=== PATIENT | female | born 1960 | race Caucasian/White ===

== ENCOUNTER → 2018-10-28 09:36 | Outpatient (CLI) | payer OTHER, SELFPAY ==
[2018-10-10 17:06] VITALS: BMI 45.3
--- NOTE | 2018-10-28 09:42 | NM_ITS ---
CLINICAL: 58-year-old female with reported history of abdominal pain. RADIONUCLIDE HEPATOBILIARY SCINTIGRAPHY COMPARISON: None available FINDINGS: Following the intravenous administration of 5.3 mCi of 99m Tc Mebrofenin, hepatobiliary images reveal: 1. Relatively prompt and homogeneous radiopharmaceutical concentration is noted by a normal sized liver. No parenchymal defects are identified. 2. Gallbladder activity is not identified during 120 minutes of sequential imaging. 3. Small intestinal tract is observed at 45 minutes post radiopharmaceutical administration. 4. Washout of the radiopharmaceutical by the hepatic parenchyma appears qualitatively normal. 5. Duodenal-gastric reflux is visualized at 45 minutes following tracer injection. NM/Hepatobilliary Img w/Pharm Int IMPRESSION: 1. ABNORMAL 99m Tc Mebrofenin hepatobiliary imaging examination. A. Nonvisualization of the gallbladder at 120 minutes post radiopharmaceutical administration in the nonacute setting is consistent with a high probability of chronic cholecystitis in patients with intermediate to high pretest probabilities of hepatobiliary disease and who have fasted for more than 4 and less than 24 hours. (Fariba et al, Nucl Med Chrissy Denisa Press pg. 35, 1981). B. There is scintigraphic evidence of duodenal-gastric reflux as defined above. Electronically Signed: Shabbir Baer DO at 10:04 EDT Tel , Service support ,
--- NOTE | 2018-10-28 12:51 | VDLE_ITS ---
Reason For Study: pain, edema RIGHT LEFT GSV is normal. GSV is normal. CFV is compressible, spontaneous, phasic, CFV is compressible, spontaneous, phasic, competent and demonstrates normal competent, and demonstrates normal augmentation. augmentation. FV is compressible, spontaneous, phasic, FV is compressible, spontaneous, phasic, competent and demonstrates normal competent and demonstrates normal augmentation. augmentation. POP V is compressible, spontaneous, phasic, POP V is compressible, spontaneous, phasic, competent and demonstrates normal competent and demonstrates normal augmentation. augmentation. T/P Trunk is compressible. T/P Trunk is compressible. PTV is compressible. PTV is compressible. RT PerV is compressible. LT PerV is compressible. S-F Junction is competent. S-F Junction is competent. GSV is competent. GSV is competent. SSV is competent. SSV is competent. ASV in the mid calf is incompetent for greater than .5 seconds. ASV measures .34 x .35 cm. Procedure Exam performed in department. Patient was scanned in reverse Trendelenburg position during reflux assessment. The exam was diagnostic. Interpretation Summary Deep veins of the lower extremities are bilaterally patent and compressible segmentally. There is no evidence of deep vein thrombosis on either side. Valvular competence appears intact within the proximal deep venous systems bilaterally. The greater saphenous veins appear bilaterally patent and compressible segmentally. Sapheno-femoral junctions are bilaterally competent . Valvular competence appears to be intact segmentally within the greater saphenous veins bilaterally. Small saphenous veins are patent and competent bilaterally. An accessory saphenous vein in the right mid-calf is incompetent. Ordering Physician: Irma Felix Performed By: Josias Lopez RVJosefina
--- NOTE | 2018-10-28 12:51 | ART_ITS ---
Reason For Study: claudication, pain, edema Left Segmental Pressures Left brachial= 139mmHg. Left posterior tibial artery = 154mmHg. Left dorsalis pedis artery = 154mmHg. Left digit = 136 mmHg. The left dorsalis pedis waveforms are triphasic. The left posterior tibial artery waveforms are triphasic. Right Segmental Pressures Right brachial= 143mmHg. Right posterior tibial artery = 153mmHg. Right dorsalis pedis artery = 143mmHg. Right digit = 140 mmHg. The right dorsalis pedis waveforms are triphasic. The right posterior tibial artery waveforms are triphasic. Indices The right ankle brachial index by the posterior tibial artery is 1.08. The right digital-brachial index is .98. The left ankle brachial index by the posterior tibial artery is 1.08. The left digital-brachial index is .95. Interpretation Summary Triphasic Doppler waveforms are noted at ankle level bilaterally. Pulse-volume waveform amplitudes appear satisfactory at all levels bilaterally, including low-thigh, calf, ankle, and digital levels. Resting ankle-brachial indices are normal bilaterally. Digital-brachial indices are bilaterally normal. There is no evidence of significant arterial occlusive disease in the lower extremities bilaterally. Ordering Physician: Irma Felix Performed By: TRUNG HIGUERA T
== END ==
PROVIDERS: Family Provider Nurse Practitioner; PCP Nurse Practitioner; Referring Provider Nurse Practitioner
DX: R11.0 Nausea (principal); R10.13 Epigastric pain; R60.9 Edema, unspecified; M79.605 Pain in left leg; M79.672 Pain in left foot; I73.9 Peripheral vascular disease, unspecified
CPT/HCPCS: 78227; 93923; 93970; A9537

== ENCOUNTER → 2018-12-19 16:20 | Outpatient (CLI) | payer OTHER, SELFPAY ==
[2018-12-19 15:32] VITALS: BMI 44.9
[2018-12-20 00:29] LABS: Absolute Lymphocyte Count 2.32 X10^3/ul (0.83-4.51); Absolute Neutrophil Count 6.6 X10^3/uL (2.0-7.7); Basophil# 0.04 X10^3/uL; Basophil% 0.4 % (0-1); Eosinophil# 0.15 X10^3/uL; Eosinophils% 1.5 % (0-5); Hematocrit 48.9 % (37-47); Lymphocyte # 2.32 X10^3/ul (4.0); Lymphocyte % 23.9 % (19-41); Mean Corp Hgb Conc 32.7 g/gl (32-36); Mean Corpuscular Hgb 32.1 pg (27.0-32.0); Mean Corpuscular Volume 98.2 fL (81-99); Mean Platelet Vol. 13.2 fl (6.2-12.0); Monocyte# 0.58 X10^3/uL; Neutrophil # 6.59 X10^3/uL (2.7-7.7); Neutrophil % 67.9 % (47-70); Platelet Count 117 K/mm3 (150-450); RBC Distribution Width CV 13.6 % (11.6-14.6); RBC Distribution Width SD 48.2 fl (35.1-43.9); Red Blood Count 4.98 M/mm3 (4.2-5.4); White Blood Count 9.7 K/mm3 (4.4-11.0)
[2018-12-20 00:34] LABS: POSITIVE COUNT NO; POSITIVE DIFFERENTIAL NO; POSITIVE MORPHOLOGY NO
[2018-12-20 00:45] LABS: ALB/GLOB Ratio 0.8 RATIO (0.9-2.4); AST(SGOT) 31 U/L (15-37); Alanine Aminotransfer ALT/SGPT 36 U/L (13-56); Albumin, Serum 3.2 g/dL (3.2-5.0); Alkaline Phosphatase 288 U/L (45-117); Anion Gap 5 (5-15); BUN 8 mg/dL (7-18); BUN/Creat Ratio 7.8 RATIO (10-20); Calcium,Total 8.6 mg/dL (8.5-10.1); Chloride 99 mmol/L (98-107); Cholesterol 126 mg/dL (200); Creatinine, Serum 1.03 mg/dL (0.55-1.02); EST Glomerular Filtration Rate 59 mL/min (>60); Est Glom Filt Rate - Afr Amer 71 mL/min (>60); Globulin 4.1 g/dL (2.2-4.2); Glucose 290 mg/dL (74-106); High Density Lipoprotein 20 mg/dL; Potassium 3.8 mmol/L (3.5-5.1); Protein, Total 7.3 g/dL (6.4-8.2); Sodium Level 136 mmol/L (136-145); Triglycerides 186 mg/dL; Very Low Density Lipoprotein 37 mg/dL (5-40)
== END ==
PROVIDERS: Family Provider Nurse Practitioner; PCP Nurse Practitioner; Visit Provider Nurse Practitioner
DX: R73.9 Hyperglycemia, unspecified (principal)
CPT/HCPCS: 80053; 80061; 85025

== ENCOUNTER → 2018-12-20 09:59 | Outpatient (CLI) | payer OTHER, SELFPAY ==
[2018-12-19 15:32] VITALS: BMI 44.9
== END ==
PROVIDERS: Family Provider Nurse Practitioner; PCP Nurse Practitioner; Referring Provider Nurse Practitioner; Visit Provider Nurse Practitioner
DX: R73.9 Hyperglycemia, unspecified (principal)

== ENCOUNTER → 2019-06-01 23:37 | Outpatient (CLI) | payer OTHER, SELFPAY ==
[2019-06-01 16:12] VITALS: BMI 41.5
[2019-06-02 10:55] LABS: Thyroid Stim Hormone (TSH) 1.74 uIU/mL (0.358-3.74)
== END ==
PROVIDERS: Family Provider Nurse Practitioner; PCP Nurse Practitioner; Referring Provider Nurse Practitioner; Visit Provider Nurse Practitioner
DX: E03.9 Hypothyroidism, unspecified (principal)
CPT/HCPCS: 84443

== ENCOUNTER → 2019-08-10 22:03 | Outpatient (CLI) | payer OTHER, SELFPAY ==
[2019-08-10 17:32] VITALS: BMI 41.1
[2019-08-10 22:14] LABS: Absolute Lymphocyte Count 3.43 X10^3/uL (0.83-4.51); Absolute Neutrophil Count 5.5 X10^3/uL (2.0-7.7); Basophil# 0.07 X10^3/uL; Basophil% 0.7 % (0-1); Eosinophil# 0.21 X10^3/uL; Eosinophils% 2.2 % (0-5); Hematocrit 53.8 % (37-47); Hemoglobin 17.6 g/dL (12.0-15.0); Lymphocyte # 3.43 X10^3/ul (4.0); Lymphocyte % 35.2 % (19-41); Mean Corp Hgb Conc 32.7 g/dL (32-36); Mean Corpuscular Hgb 31.8 pg (27.0-32.0); Mean Corpuscular Volume 97.3 fL (81-99); Mean Platelet Vol. 12.5 fl (6.2-12.0); Monocyte# 0.52 X10^3/uL; Monocyte% 5.3 % (0-10); NRBC Flagged by Analyzer 0 % (0-5); Neutrophil # 5.48 X10^3/uL (2.7-7.7); Neutrophil % 56.2 % (47-70); Platelet Count 117 K/mm3 (150-450); RBC Distribution Width CV 13.4 % (11.6-14.6); Red Blood Count 5.53 M/mm3 (4.2-5.4); White Blood Count 9.8 K/mm3 (4.4-11.0)
[2019-08-10 22:32] LABS: ALB/GLOB Ratio 1.1 RATIO (0.9-2.4); AST(SGOT) 32 U/L (15-37); Alanine Aminotransfer ALT/SGPT 59 U/L (13-56); Albumin, Serum 4.1 g/dL (3.2-5.0); Alkaline Phosphatase 155 U/L (45-117); Anion Gap 5 (5-15); BUN 16 mg/dL (7-18); BUN/Creat Ratio 13.8 RATIO (10-20); CRP, High Sensitivity Cardiac 5.32 mg/L; Calcium,Total 9.3 mg/dL (8.5-10.1); Chloride 104 mmol/L (98-107); Creatinine, Serum 1.16 mg/dL (0.55-1.02); EST Glomerular Filtration Rate 51 mL/min (>60); Est Glom Filt Rate - Afr Amer 62 mL/min (>60); Globulin 3.8 g/dL (2.2-4.2); Glucose 114 mg/dL (74-106); Potassium 3.9 mmol/L (3.5-5.1); Protein, Total 7.9 g/dL (6.4-8.2); Sodium Level 140 mmol/L (136-145); Thyroid Stim Hormone (TSH) 2.45 uIU/mL (0.358-3.74)
== END ==
PROVIDERS: Family Provider Nurse Practitioner; PCP Nurse Practitioner; Referring Provider Nurse Practitioner; Visit Provider Nurse Practitioner
DX: E11.8 Type 2 diabetes mellitus with unspecified complications (principal); E11.65 Type 2 diabetes mellitus with hyperglycemia; R06.02 Shortness of breath
CPT/HCPCS: 80053; 84443; 84484; 85025; 86141

== ENCOUNTER → 2019-10-01 06:50 | Outpatient (CLI) | payer OTHER, SELFPAY ==
[2019-08-18 14:50] VITALS: BMI 41.5
--- NOTE | 2019-10-01 06:51 | ECHOCS_ITS ---
Version 2 Reason For Study: Palpitations Procedure This was a 2D Doppler, Color Flow transthoracic echocardiogram. Exam performed in department. Left Ventricle Normal LV size. The estimated ejection fraction is 65 %. Normal diastology for age. No regional wall motion abnormalities noted. Right Ventricle Normal RV size. Normal systolic function. Atria Normal left atrium. Normal right atrium. No doppler evidence for ASD. Mitral Valve There is no mitral valve stenosis. No mitral valve insufficiency. Tricuspid Valve There is no tricuspid stenosis. Unable to estimate RV systolic pressure due to insufficient tricuspid regurgitant envelope. Trivial tricuspid valve insufficiency. Aortic Valve Trisinus/trileaflet aortic valve. There is no aortic stenosis. No aortic valve insufficiency. Pulmonic Valve There is no pulmonic valvular stenosis. Trivial pulmonic valve insufficiency. Great Vessels Normal aortic root. Pericardium/Pleural No pericardial effusion. Medication Diluted definity 3.0ml given slow IV push to enhance endocardial definition. MMode/2D Measurements & Calculations RVDd: 3.3 cm Ao root diam: 3.0 cm LAV(MOD-bp): 53.3 ml LAV(MOD-bp) Indexed: 25.1 ml/m2 LAV(MOD-sp2): 55.2 ml LAV(MOD-sp4): 51.2 ml SV(MOD-sp4): 74.2 ml SV(sp4-el): 79.2 ml LVAd ap4: 30.2 cm2 EDV(MOD-sp4): 92.6 ml EDV(sp4-el): 97.1 ml LVAs ap4: 11.2 cm2 ESV(MOD-sp4): 18.3 ml ESV(sp4-el): 17.8 ml EF(MOD-sp4): 80.2 % EF(sp4-el): 81.6 % LA dimension(2D): 4.6 cm LA A4 area: 18.6 cm2 RA A4 area: 13.0 cm2 Time Measurements MV dec time: 0.26 sec Doppler Measurements & Calculations MV E max ming: 79.0 cm/sec Lat Peak E' Ming: 8.0 cm/sec Med Peak E' Ming: 7.5 cm/sec MV A max ming: 87.3 cm/sec E/E' lat: 9.9 E/E' med: 10.5 MV E/A: 0.90 Ao V2 max: 170.9 cm/sec LV V1 max: 161.3 cm/sec PA V2 max: 115.4 cm/sec Ao max P.7 mmHg LV V1 max P.4 mmHg TR max ming: 290.8 cm/sec TR max P.8 mmHg Interpretation Summary The estimated ejection fraction is 65 %. Normal diastology for age. The study was technically difficult. Contrast injection was performed. Ordering Physician: Mrak Ch Referring Physician: Irma Felix Performed By: Paola Villa, KRISHNA, RVT
--- NOTE | 2019-10-06 13:24 | STRESSREP_ITS ---
Stress Test Report Date: 10/01/2019 Procedure: Pharmacologic stress nuclear imaging study Indications: Chest pain Consent: Per the patient Procedure: The patient underwent pharmacologic (Regadenoson) evaluation with a peak heart rate of 113 beats per minute (69 %predicted maximal heart rate) and a peak blood pressure of 112/80 mmHg. The baseline ECG demonstrated normal sinus rhythm. EKG during lexiscan infusion revealed no significant ischemic changes. EKG post infusion revealed no significant ischemic changes [There were no cardiac dysrhythmias pretest, during pharmacologic infusion, or recovery]. [There was no complaint of chest discomfort during pharmacologic infusion or recovery]. The examination was discontinued secondary to completion of protocol. Impression: 1. Lexiscan stress test test is negative for Lexiscan infusion induced EKG changes of ischemia. 2. Lexiscan stress test test is negative for Lexiscan infusion induced chest pain. 3. Results of the nuclear portion of the test is as below Myocardial perfusion imaging study: Technique: The patient was injected with 14.8 millicuries of technetium 99m Cardiolite and subsequently rest SPECT Cardiolite nuclear imaging was obtained in the horizontal long, vertical long, and short axis views. The patient underwent pharmacologic (Regadenoson) evaluation. Please see above for details. The patient was injected with 44.5 millicuries of technetium 99m Cardiolite and subsequently stress SPECT Cardiolite nuclear imaging was obtained in the horizontal long, vertical long, and short axis views. A gated Cardiolite study at peak stress was obtained. Interpretation: Rest and stress SPECT Cardiolite nuclear imaging status post realignment, normalization, and attenuation correction demonstrate overall normal uptake. There is no evidence of significant ischemia or infarction. Gated images reveal no significant regional wall motion abnormalities. The reported LVEF is greater than 70 %. Impression: 1. There is no evidence of significant ischemia or infarction. 2. Estimated ejection fraction is greater than 70%. This note was generated with [employer] Greenation software. It may contain incorrect words, spelling, and punctuation that were not noted in checking the note before signing.
== END ==
PROVIDERS: PCP Nurse Practitioner; Referring Provider Specialist; Visit Provider Specialist
DX: R07.9 Chest pain, unspecified (principal); R00.2 Palpitations; R42 Dizziness and giddiness
CPT/HCPCS: 78452; 93017; 93306; A9500; Q9957; A4216; C8929; J2785

== ENCOUNTER → 2020-06-29 10:15 | Outpatient (CLI) | payer OTHER, SELFPAY ==
[2020-06-27 14:14] VITALS: BMI 45.4
== END ==
PROVIDERS: PCP Nurse Practitioner; Referring Provider Nurse Practitioner; Visit Provider Nurse Practitioner
DX: R50.9 Fever, unspecified (principal); R09.89 Other specified symptoms and signs involving the circulatory and respiratory systems
CPT/HCPCS: 87635; C9803; U0003

== ENCOUNTER → 2020-09-26 | Outpatient (CLI) | payer MEDICAID, SELFPAY ==
[2020-09-26 17:10] VITALS: BMI 49.4
[2020-09-26 23:05] LABS: ALB/GLOB Ratio 0.9 RATIO (0.9-2.4); AST(SGOT) 30 U/L (15-37); Alanine Aminotransfer ALT/SGPT 42 U/L (13-56); Albumin, Serum 3.5 g/dL (3.2-5.0); Alkaline Phosphatase 188 U/L (45-117); Anion Gap 8 (5-15); BUN 20 mg/dL (7-18); BUN/Creat Ratio 14.5 RATIO (10-20); Calcium,Total 9.1 mg/dL (8.5-10.1); Chloride 102 mmol/L (98-107); Creatinine, Serum 1.38 mg/dL (0.55-1.02); EST Glomerular Filtration Rate 42 mL/min (>60); Est Glom Filt Rate - Afr Amer 50 mL/min (>60); Globulin 3.7 g/dL (2.2-4.2); Glucose 105 mg/dL (74-106); Potassium 4.3 mmol/L (3.5-5.1); Protein, Total 7.2 g/dL (6.4-8.2); Sodium Level 142 mmol/L (136-145); Uric Acid 7.5 mg/dL (2.6-6.0)
== END | disposition home or self-care (01) ==
PROVIDERS: PCP Nurse Practitioner; Referring Provider Nurse Practitioner; Visit Provider Nurse Practitioner
DX: E11.65 Type 2 diabetes mellitus with hyperglycemia (principal); E11.8 Type 2 diabetes mellitus with unspecified complications; R60.0 Localized edema
CPT/HCPCS: 80053; 84550

== ENCOUNTER → 2020-12-09 | Outpatient (CLI) | payer MEDICAID, SELFPAY ==
[2020-12-09 15:41] VITALS: BMI 51.6
[2020-12-09 22:11] LABS: ALB/GLOB Ratio 0.9 RATIO (0.9-2.4); AST(SGOT) 33 U/L (15-37); Alanine Aminotransfer ALT/SGPT 64 U/L (13-56); Albumin, Serum 3.1 g/dL (3.2-5.0); Alkaline Phosphatase 193 U/L (45-117); Anion Gap 3 (5-15); BUN 13 mg/dL (7-18); BUN/Creat Ratio 7.7 RATIO (10-20); Calcium,Total 8.7 mg/dL (8.5-10.1); Chloride 104 mmol/L (98-107); Creatinine, Serum 1.68 mg/dL (0.55-1.02); EST Glomerular Filtration Rate 33 mL/min (>60); Est Glom Filt Rate - Afr Amer 40 mL/min (>60); Globulin 3.6 g/dL (2.2-4.2); Glucose 99 mg/dL (74-106); Potassium 4.6 mmol/L (3.5-5.1); Protein, Total 6.7 g/dL (6.4-8.2); Sodium Level 144 mmol/L (136-145)
[2020-12-10 00:11] LABS: BNP,B-Type NATRIURETIC PEPTIDE 36.6 pg/mL (0-100)
== END | disposition home or self-care (01) ==
PROVIDERS: PCP Nurse Practitioner; Referring Provider Nurse Practitioner; Visit Provider Nurse Practitioner
DX: I50.9 Heart failure, unspecified (principal); R06.02 Shortness of breath; R07.89 Other chest pain
CPT/HCPCS: 80053; 83880; 84484; 86141

== ENCOUNTER → 2020-12-15 16:48 | Outpatient (CLI) | payer MEDICAID, SELFPAY ==
[2020-12-15 15:14] VITALS: BMI 50.3
--- NOTE | 2020-12-15 16:52 | CT_ITS ---
STUDY: CTA CHEST REASON FOR EXAM: Female, 60 years old. SOB RADIATION DOSAGE (If Supplied By Facility): CTDIvol = ( 11.48 ) mGy, DLP = ( 524.42 ) mGycm TECHNIQUE: The examination was performed with the intravenous administration of IV 100mL Isovue-370. Post-processing of the angiographic images was performed, with multiplanar reformation and 3D reconstruction. Individualized dose optimization techniques were used for this CT. COMPARISON: None. FINDINGS: Normal enhancement of the main pulmonary artery and right and left pulmonary arteries. There is limited enhancement of the bilateral peripheral pulmonary arteries. There is no demonstrated pulmonary embolism. Normal thoracic aorta and visualized great vessels. There is no demonstrated aortic dissection. Normal heart and pericardium. Normal mediastinum. Normal hilar regions. Normal visualized trachea and bronchi. The lungs are well expanded. 5.5 mm noncalcified fissural nodule at the left apex. Scattered mild groundglass opacities. Densely calcified left upper lobe nodule. Normal chest wall structures. Fat attenuation density within the right breast with peripheral calcifications measuring 2.8 cm. Normal osseous structures. Normal visualized upper abdomen. CT/CTA Chest W/WO Contrast IMPRESSION: No demonstrated pulmonary embolism or arterial dissection. Scattered minimal groundglass opacities are nonspecific. Infection is not excluded. 5.5 mm left apical nodule. Fleischner Society Recommendations for Follow-up and Management of Nodules Smaller than 8 mm Detected Incidentally at Nonscreening CT. Nodule size < or = 4 mm: Low-Risk Patient - No follow-up needed. High-Risk Patient - Follow-up CT at 12 months; if unchanged, no further follow-up. Nodule size > 4-6 mm: Low-Risk Patient - Follow-up CT at 12 months; if unchanged, no further follow-up. High-Risk Patient - Initial follow-up CT at 6-12 months then at 18-24 months if no change. Nodule size > 6-8 mm: Low-Risk Patient - Initial follow-up CT at 6-12 months then at 18-24 months if no change. High-Risk Patient - Initial follow-up CT at 3-6 months then at 9-12 and 24 months if no change. Nodule size > 8 mm: Low-Risk Patient - Follow-up CT at around 3,9 and 24 months. Dynamic contrast-enhanced CT, PET and/or biopsy. High-Risk Patient - Same as for low-risk patient. Low-Risk = Minimal or absent history of smoking and of other known risk factors. High-Risk = History of smoking or of other known risk factors. Electronically Signed: Pipo Prather MD at 18:09 EDT Tel , Service support ,
== END ==
PROVIDERS: PCP Nurse Practitioner; Referring Provider Nurse Practitioner Family; Visit Provider Nurse Practitioner Family
DX: R06.02 Shortness of breath (principal); R07.9 Chest pain, unspecified
CPT/HCPCS: 71275; Q9967; A4216

== ENCOUNTER → 2020-12-20 13:04 | Outpatient (CLI) | payer MEDICAID, SELFPAY ==
[2020-11-22 15:39] VITALS: BMI 51.1
[2020-12-15 15:14] VITALS: BMI 50.3
--- NOTE | 2020-12-20 13:06 | ART_ITS ---
Reason For Study: PVD Procedure A bilateral lower extremity continuous wave Doppler with analog waveform analysis,segmental pressures,and ankle brachial indexes without exercise. Left Segmental Pressures Left brachial= 152mmHg. Left posterior tibial artery = 169mmHg. Left dorsalis pedis artery = 153mmHg. Left digit = 114 mmHg. The left dorsalis pedis waveforms are triphasic. The left posterior tibial artery waveforms are triphasic. Right Segmental Pressures Right brachial= 146mmHg. Right posterior tibial artery = 168mmHg. Right dorsalis pedis artery = 161mmHg. Right digit = 138 mmHg. The right dorsalis pedis waveforms are triphasic. The right posterior tibial artery waveforms are triphasic. Indices The right ankle brachial index by the dorsalis pedis is 1.06. The right ankle brachial index by the posterior tibial artery is 1.11. The right digital-brachial index is 0.91. The left ankle brachial index by the dorsalis pedis is 1.01. The left ankle brachial index by the posterior tibial artery is 1.11. The left digital-brachial index is 0.75. VL/Lower Ext Art Exam w/o Exercis Interpretation Summary Triphasic Doppler waveforms are noted at ankle level bilaterally. Pulse-volume recordings appear satisfactory at all levels bilaterally, including low-thigh, calf, ankle, and d igital levels. Resting ankle-brachial indices are normal bilaterally. Digital-brachial indices are normal bilaterally. There is no evidence of significant arterial occlusive disease in the lower ext remities bilaterally. Ordering Physician: Irma Felix Referring Physician: Irma Felix Performed By: Lexy Russo RVT
--- NOTE | 2020-12-20 13:06 | VDLE_ITS ---
Reason For Study: Edema RIGHT LEFT CFV is compressible, spontaneous, phasic, CFV is compressible, spontaneous, phasic, competent and demonstrates normal competent, and demonstrates normal augmentation. augmentation. FV is compressible, spontaneous, phasic, FV is compressible, spontaneous, phasic, competent and demonstrates normal competent and demonstrates normal augmentation. augmentation. POP V is compressible, spontaneous, phasic, POP V is compressible, spontaneous, phasic, competent and demonstrates normal competent and demonstrates normal augmentation. augmentation. T/P Trunk is compressible. T/P Trunk is compressible. PTV is compressible. PTV is compressible. RT PerV is compressible. LT PerV is compressible. SFJ is competent and measures 0.59 x 0.67 cm. SFJ is competent and measures 1.01 x 0.82 cm. GSV proximal thigh measures 0.60 x 0.66 cm. GSV proximal thigh measures 0.67 x 0.62 cm. GSV at knee measures 0.56 x 0.58 cm. GSV at knee measures 0.58 x 0.59 cm. GSV is competent throughout. GSV is competent throughout. ASV mid calf is INCOMPETENT for greater than SSV at junction is competent and measures 0.5 seconds and measures 0.40 x 0.39 cm. 0.27 x 0.28 cm. SSV at junction is competent and measures 0.30 x 0.29 cm. Procedure This is a venous duplex using B-mode, color flow and spectral Doppler. Exam performed in department. VL/Venous Duplex US - Moose Extrem Interpretation Summary Deep veins of the lower extremities are bilaterally patent and compressible seg mentally. There is no evidence of deep vein thrombosis on either side. Valvular competence appears in tact within the proximal deep venous systems bilaterally. The great saphenous veins appear bila terally patent and compressible segmentally. Sapheno-femoral junctions are bilaterally competent . Valvular competence appears to be intact segmentally within the great saphenous veins bilaterally. Small saphenous veins are patent and competent bilaterally. The accessory saphenous vein in the right mid-calf is incompetent. Ordering Physician: Irma Felix Referring Physician: Irma Felix Performed By: Lexy Russo RVT
== END ==
PROVIDERS: PCP Nurse Practitioner; Referring Provider Nurse Practitioner; Visit Provider Nurse Practitioner
DX: M79.605 Pain in left leg (principal); R60.0 Localized edema; I73.9 Peripheral vascular disease, unspecified
CPT/HCPCS: 93923; 93970

== ENCOUNTER → 2020-12-23 08:15 | Outpatient (CLI) | payer MEDICAID, SELFPAY ==
[2020-12-15 15:14] VITALS: BMI 50.3
--- NOTE | 2020-12-23 12:56 | PFTCOMP ---
COMPLETE PULMONARY FUNCTION TEST INTERPRETATION Brief HPI: Patient is a 60 year old female, currently under the care of Lionel Estrada, who presents to [facility] for complete pulmonary function tests secondary to diagnosis of dyspnea. Respiratory therapist reports good effort and reproducible results. Interpretation: Forced expiration spirometry shows a severe large airways obstructive ventilatory defect with an FEV1 of 43% predicted. There is no significant bronchodilator response by strict ATS criteria. Spirograms are of good quality and plateau slowly, indicating slowly emptying areas of the lungs. The respiratory flow volume loop shows decreased expiratory flow rates at all lung volumes consistent with airway obstruction. Lung volumes by body plethysmography show a decreased total lung capacity at 4.14 L, 79% predicted. FRC and RV are elevated out of proportion. Lung volume measurements are consistent with air-trapping. Diffusion capacity by carbon monoxide is decreased at 62% predicted. The airway resistance is elevated. No previous pulmonary function tests were available for review. Impression: Irreversible severe mixed ventilatory defect with a symmetric reduction in diffusion capacity.
== END ==
PROVIDERS: PCP Nurse Practitioner; Referring Provider Nurse Practitioner Family; Visit Provider Nurse Practitioner Family
DX: R06.02 Shortness of breath (principal)
CPT/HCPCS: 94060; 94726; 94729

== ENCOUNTER → 2020-12-27 | Outpatient (CLI) | payer MEDICAID, SELFPAY ==
[2020-12-27 15:10] VITALS: BMI 50.4
[2020-12-27 22:06] LABS: Hemoglobin A1c 5.8 % (3.8-5.6)
[2020-12-27 22:14] LABS: ALB/GLOB Ratio 0.9 RATIO (0.9-2.4); Albumin, Serum 3.2 g/dL (3.2-5.0); BUN 8 mg/dL (7-18); BUN/Creat Ratio 6.8 RATIO (10-20); Calcium,Total 8.6 mg/dL (8.5-10.1); Creatinine, Serum 1.18 mg/dL (0.55-1.02); Globulin 3.7 g/dL (2.2-4.2); Glucose 95 mg/dL (74-106); Protein, Total 6.9 g/dL (6.4-8.2); Uric Acid 5.9 mg/dL (2.6-6.0)
[2020-12-27 22:15] LABS: AST(SGOT) 36 U/L (15-37); Alanine Aminotransfer ALT/SGPT 34 U/L (13-56); Alkaline Phosphatase 226 U/L (45-117); Chloride 106 mmol/L (98-107); Phosphorus 3.7 mg/dL (2.5-4.9); Potassium 3.4 mmol/L (3.5-5.1); Sodium Level 143 mmol/L (136-145)
[2020-12-27 22:16] LABS: Anion Gap 5 (5-15)
[2020-12-27 22:40] LABS: EST Glomerular Filtration Rate 50 mL/min (>60); Est Glom Filt Rate - Afr Amer 60 mL/min (>60)
== END | disposition home or self-care (01) ==
PROVIDERS: PCP Nurse Practitioner; Referring Provider Nurse Practitioner; Visit Provider Nurse Practitioner
DX: N28.9 Disorder of kidney and ureter, unspecified (principal); R06.02 Shortness of breath; I73.9 Peripheral vascular disease, unspecified; E11.65 Type 2 diabetes mellitus with hyperglycemia; E11.8 Type 2 diabetes mellitus with unspecified complications
CPT/HCPCS: 80053; 83036; 84100; 84484; 84550; 86141

== ENCOUNTER → 2021-06-28 14:08 | Outpatient (CLI) | payer MEDICAID, SELFPAY ==
--- NOTE | 2021-06-28 14:15 | CT_ITS ---
STUDY: CT CHEST WITHOUT CONTRAST REASON FOR EXAM: Female, 60 years old. Lung Nodule, Tobacco Dependency RADIATION DOSAGE (If Supplied By Facility): CTDIvol = ( 20.13 ) mGy, DLP = ( 764.54 ) mGycm TECHNIQUE: Transaxial imaging was performed without the administration of intravenous contrast material. Multiplanar coronal and sagittal images were reformatted. Individualized dose optimization techniques were used for this CT. COMPARISON: Comparison is made with prior examination dated 12/15/2020. FINDINGS: Small benign-appearing bilateral axillary lymph nodes. There is a 2.3 cm hypodense nodule in the right breast with peripheral calcification. There is a 9 mm calcified granuloma in the anterior aspect of the left upper lobe. Stable 5.5 mm noncalcified nodule in the posterior aspect of the left lung apex. This abuts the left major fissure. There is no demonstrated pleural abnormality. There are calcifications of the coronary arteries. There are multiple small lymph nodes within the mediastinum, which are normal in size and morphology most compatible with reactive lymph hyperplasia. Normal hilar regions. Normal unenhanced pulmonary arteries. Normal aorta arch and descending thoracic aorta. There are multi-level degenerative changes of the thoracic spine. The patient is status post cholecystectomy. There is a 4.5 cm x 3.1 cm heterogeneous nodule in the right adrenal gland. This is suggestive of a hamartoma. This is unchanged. Splenomegaly. CT/Chest without Contrast IMPRESSION: Stable examination. Electronically Signed: Luis Mittal MD at 14:55 EST , Service support ,
== END ==
PROVIDERS: PCP Nurse Practitioner; Referring Provider Internal Medicine Critical Care Medicine; Visit Provider Internal Medicine Critical Care Medicine
DX: R91.1 Solitary pulmonary nodule (principal)
CPT/HCPCS: 71250

== ENCOUNTER → 2021-06-29 10:32 | Outpatient (CLI) | payer MEDICAID, SELFPAY ==
[2021-06-29 11:09] VITALS: PULSE 100; PULSE 81; PULSE 83; PULSE 90; PULSE 91; PULSE 92; O2SAT 86; O2SAT 90; O2SAT 91; O2SAT 93; O2SAT 94
--- NOTE | 2021-06-29 11:12 | CPS ---
PATIENT DOES NOT CURRENTLY HAVE DME AT HOME. SHE STATES AMBULATION IS LIMITED BY LEFT LEG WEAKNESS FROM ACHILLES TENDON. AMBULATED 790 FT, SPO2 FELL TO 86% RA AT 3 MIN, O2 APPLIED AT 2LPM AND REMAINED FOR DURATION OF TESTING. SHE IS AWARE SHE WILL RECEIVE A CALL FROM A DME COMPANY TO SET UP AFTER ORDER IS PLACED. SHE HAS NO DME PREFERENCE LONG COVERED BY HER INSURANCE. PRELIMINARY DATA SENT TO PULMONARY MEDICINE
--- NOTE | 2021-06-30 10:11 | WT_ITS ---
PSN 6 Minute Walk Test 6 Minute Walk Test 6 Minute Walk Test: 6 Minute Walk Test PSN:6-Minute Walk Test Start: 06/29/21 11:08 Freq: Status: Active Protocol: [id number] Document 06/29/21 11:09 [facility] (Rec: 06/29/21 11:17 [facility] [id number]) 6 Minute Walk Test Date Performed 06/29/21 Time Performed 10:45 Height 5 ft 4 in Weight: 115.666 kg Weight in Pounds 255.[address]: Adolph Montalvo Assistive device used: None Pre-test Oxygen Delivery Method Room Air Pulse Ox (%) 94 Pulse Rate (60-100 beats/min) 81 Dyspnea Pedrito Scale (0-10) 0 1st minute Oxygen Delivery Method Room Air Pulse Ox (%) 93 Pulse Rate (60-100 beats/min) 90 Dyspnea Pedrito Scale (0-10) 1 Number of Rests Taken 0 2nd minute Oxygen Delivery Method Room Air Pulse Ox (%) 90 Pulse Rate (60-100 beats/min) 92 Dyspnea Pedrito Scale (0-10) 1 Number of Rests Taken 0 3rd minute Oxygen Delivery Method Room Air Pulse Ox (%) 86 Pulse Rate (60-100 beats/min) 100 Dyspnea Pedrito Scale (0-10) 2 Number of Rests Taken 1 4th minute Oxygen Flow Rate (L/min) (L/min) 2 Oxygen Delivery Method Nasal Cannula Pulse Ox (%) 94 Pulse Rate (60-100 beats/min) 91 Dyspnea Pedrito Scale (0-10) 2 Number of Rests Taken 0 5th minute Oxygen Flow Rate (L/min) (L/min) 2 Oxygen Delivery Method Nasal Cannula Pulse Ox (%) 93 Pulse Rate (60-100 beats/min) 92 Dyspnea Pedrito Scale (0-10) 2 Number of Rests Taken 0 6th minute Oxygen Flow Rate (L/min) (L/min) 2 Oxygen Delivery Method Nasal Cannula Pulse Ox (%) 91 Pulse Rate (60-100 beats/min) 90 Dyspnea Pedrito Scale (0-10) 2 Number of Rests Taken 0 Post-test Oxygen Delivery Method Room Air Pulse Ox (%) 94 Pulse Rate (60-100 beats/min) 83 Dyspnea Pedrito Scale (0-10) 0 Full Laps Walked 13 Partial Lap, Number of Tiles Walked 23 Total Distance Walked (ft) 790 06/29/21 11:12 Cardiopulmonary Services by Michelle Dobbins PATIENT DOES NOT CURRENTLY HAVE DME AT HOME. SHE STATES AMBULATION IS LIMITED BY LEFT LEG WEAKNESS FROM ACHILLES TENDON. AMBULATED 790 FT, SPO2 FELL TO 86% RA AT 3 MIN, O2 APPLIED AT 2LPM AND REMAINED FOR DURATION OF TESTING. SHE IS AWARE SHE WILL RECEIVE A CALL FROM A DME COMPANY TO SET UP AFTER ORDER IS PLACED. SHE HAS NO DME PREFERENCE LONG COVERED BY HER INSURANCE. PRELIMINARY DATA SENT TO PULMONARY MEDICINE Initialized on 06/29/21 11:12 - END OF NOTE Interpretation Interpretation: The patient ambulated 790 feet over the course of 6 minutes beginning on room air without assistive devices. Pretesting oxygen saturation was noted to be 94% on room air. With ambulation, the shanika oxygen saturation was 86%. 2 L/min of supplemental oxygen was applied, and the patient was able to complete the remainder of the test while maintaining appropriate oxygen saturations. Recommendations Recommendations: 2 L/min of supplemental oxygen should be utilized with exertion.
== END ==
PROVIDERS: PCP Nurse Practitioner; Referring Provider Internal Medicine Critical Care Medicine; Visit Provider Internal Medicine Critical Care Medicine
DX: R94.2 Abnormal results of pulmonary function studies (principal)
CPT/HCPCS: 94618

== ENCOUNTER 2021-08-31 12:55 | Emergency (ER) | payer MEDICAID, SELFPAY ==
[2021-08-31] VITALS (7 sets, daily range): BP systolic 139–160; BP diastolic 88–109; PULSE 81–84; RESP 12–18; TEMP 36.2; O2SAT 77–96; BMI 43.4
--- NOTE | 2021-08-31 13:14 | ED.VIS.DYS ---
HPI History of Present Illness Chief Complaint: Shortness of Breath Informant: patient Onset/Context/Timing Onset: Month(s) (1) Context: gradual Timing: Waxes and wanes Worsened by: Coughing Relieved by: Nothing Associated Symptoms cough, rhinorrhea and fever; Negative for ear pain, sore throat, chills or sweats Narrative Narrative: Presents with cough and shortness of breath that has been waxing and waning over the past month. Patient states she had a sinus infection and was placed on antibiotics for that. Patient states she was better when she completed the course of the antibiotics. Patient states that approximately 3 days after she completed the antibiotics, her symptoms became worse. Patient states she completed her course of antibiotics almost 1 month ago. Patient states she has sharp pain in her lower chest. Patient states this is worse with coughing. Patient also admits to some aching in her lower thoracic area. Patient admits to a fever at home of up to 101. Patient saw the nurse practitioner for her primary care physician yesterday. Patient states she had lab work drawn at that time. Patient states that she was called today and told to come to the emergency department because her labs were abnormal. [facility] Medical History Adrenal tumor Anxiety Bladder spasms Colitis Diabetes mellitus type 2, uncontrolled, with complications Essential hypertension Fatty liver disease, nonalcoholic GERD (gastroesophageal reflux disease) Gout Hyperlipidemia Hypothyroidism Ovarian tumor Panic attacks Renal insufficiency Stress incontinence Home Medications cholecalciferol (vitamin D3) 50 mcg (2,000 unit) tablet 2,000 unit PO DAILY 08/18/19 [History Last Taken Unknown] albuterol sulfate 2.5 mg INHALATION Q4H PRN #75 ml 02/04/20 [Rx Last Taken Unknown] atorvastatin 20 mg tablet 20 mg PO QHS #30 tab 02/23/20 [Rx Last Taken Unknown] allopurinol 300 mg tablet 300 mg PO DAILY #30 tab 09/29/20 [Rx Last Taken Unknown] aspirin 81 mg tablet,delayed release 162 mg PO DAILY tab 12/15/20 [History Last Taken Unknown] blood sugar diagnostic #100 ea 12/27/20 [Rx Last Taken Unknown] budesonide 160 mcg-glycopyr 9 mcg-formot 4.8 mcg/actuation HFA inhaler 2 inh INHALATION BID 12/27/20 [History Last Taken Unknown] amlodipine 5 mg tablet 5 mg PO DAILY #30 tab 01/26/21 [Rx Last Taken Unknown] hydroxyzine HCl 10 mg tablet 10 mg PO TID-QID PRN #60 tab 04/12/21 [Rx Last Taken Unknown] venlafaxine 37.5 mg capsule,extended release 24 hr 37.5 mg PO DAILY #30 cap 04/12/21 [Rx Last Taken Unknown] furosemide 20 mg tablet 20 mg PO DAILY #90 tab 04/14/21 [Rx Last Taken Unknown] potassium chloride 20 mEq tablet,extended release 20 meq PO DAILY #90 tab 04/14/21 [Rx Last Taken Unknown] mesalamine 500 mg capsule,controlled release 500 mg PO BID #60 cap 06/14/21 [Rx Last Taken Unknown] albuterol sulfate 90 mcg/actuation aerosol inhaler 2 puff INHALATION Q4H #8.5 g 07/27/21 [Rx Last Taken Unknown] clonazepam 1 mg tablet 1 mg PO BID #60 tab 07/27/21 [Rx Last Taken Unknown] gabapentin 300 mg capsule 900 mg PO BID #180 cap 07/27/21 [Rx Last Taken Unknown] metformin 1,000 mg tablet 1,000 mg PO BID #60 tab 07/27/21 [Rx Last Taken Unknown] omeprazole 20 mg capsule,delayed release 20 mg PO DAILY #30 cap 07/27/21 [Rx Last Taken Unknown] tramadol 50 mg tablet 50 mg PO BID PRN #60 tab 07/27/21 [Rx Last Taken Unknown] zolpidem 10 mg tablet 10 mg PO QHS PRN #30 tab 07/27/21 [Rx Last Taken Unknown] levofloxacin 500 mg tablet 500 mg PO DAILY #14 tab 08/28/21 [Rx Last Taken Unknown] oxybutynin chloride 10 mg tablet,extended release 24 hr 10 mg PO DAILY #30 tab 08/28/21 [Rx Last Taken Unknown] levofloxacin 500 mg PO DAILY #7 tab 08/31/21 [Rx Last Taken Unknown] Allergy/AdvReac Type Severity Reaction Status Date / Time amoxicillin [From Augmentin] Allergy Severe rash Verified 08/31/21 12:58 clavulanic acid Allergy Severe rash Verified 08/31/21 12:58 [From Augmentin] meperidine [From Demerol] Allergy Severe headache Verified 08/31/21 12:58 pioglitazone [From Actos] Allergy Severe CHF and Verified 08/31/21 12:58 edema renal insufficiency bupropion [From Wellbutrin] AdvReac Severe suicidal Verified 08/31/21 12:58 Family History Aunt Colon cancer Breast cancer Mother Breast cancer Father Heart disease Alzheimer disease Hypertension CVA (cerebral vascular accident) Surgical History Achilles rupture H/O laparoscopy H/O oophorectomy History of cholecystectomy History of repair of rotator cuff Open right hand fracture Previous section Social History Smoking Status: Current every day smoker tobacco type: cigarettes alcohol intake: never substance use type: does not use caffeine: Yes Type: carbonated beverages Number of servings: 3 and coffee Number of servings: 3 ROS ROS ED Constitutional Constitutional ED: Reports fever(s); Denies chills Eyes Eyes: Denies blurry vision or change in vision ENT ENT ED: Reports rhinorrhea; Denies sore throat Cardiovascular Cardiovascular: Reports chest pain; Denies palpitations Respiratory/Chest Respiratory/Chest: Reports cough and dyspnea Gastrointestinal Gastrointestinal: Denies nausea or vomiting Genitourinary Genitourinary ED: Reports urinary frequency; Denies dysuria or hematuria Musculoskeletal Musculoskeletal: Reports neck pain; Denies back pain Integumentary Denies abscess or rash Neurologic Neurologic: Reports headache(s); Denies weakness Allergic/Immunologic Allergic/Immunologic ED: Denies mouth swelling or urticaria EXAM Physical Exam Const Vital Signs: 08/31/21 12:56 08/31/21 13:24 08/31/21 13:26 Temperature 97.2 F L Temperature Source Temporal Pulse Rate 84 Respiratory Rate 12 Respiratory Effort Normal Non-Labored Respiratory Depth Normal Respiratory Pattern Normal Blood Pressure 160/109 H Blood Pressure Mean 126 Pulse Ox Oxygen Delivery Method Room Air Oxygen Flow Rate (L/min) 08/31/21 13:47 08/31/21 14:46 08/31/21 15:04 Temperature Temperature Source Pulse Rate 81 Respiratory Rate 18 Respiratory Effort Respiratory Depth Respiratory Pattern Blood Pressure 139/88 H Blood Pressure Mean 105 Pulse Ox 96 95 96 Oxygen Delivery Method Nasal Cannula Nasal Cannula Nasal Cannula Oxygen Flow Rate (L/min) 2 2 2 Positive well nourished, well developed and obese General Appearance ED: well developed Nutritional Appearance: obese HEENT Reports moist mucous membranes Neck supple and no JVD Resp normal respiratory effort Auscultation: diminished lung sounds diffuse Cardio regular rate, regular rhythm and no murmurs GI normal to inspection, nondistended, normoactive bowel sounds and non-tender Palpation: soft Extremity normal to inspection General Extremety ED: Negative for edema or tenderness General Extremity: Negative for edema Neuro oriented x3, CN's II-XII intact bilaterally and no sensory deficits noted Sensorium / Orientation: alert Motor Exam: strength 5/5 throughout Psych mental status grossly normal Skin no rashes or lesions noted MDM MDM MDM Narrative Medical decision making narrative: CBC and comprehensive metabolic profile were obtained and were within normal limits. High-sensitivity troponin was normal. CTA of the chest was obtained. There are right upper and middle and lower lobe groundglass infiltrates. There is no evidence of pulmonary embolism. COVID-19 rapid antigen was obtained and was negative. Patient was advised of her findings. Patient was given a dose of Zithromax here. Patient was given a prescription for Zithromax. Patient was advised that this could be viral pneumonia as well. Patient was instructed to wear a mask. Patient was instructed to follow-up with her primary care physician in 5 to 7 days. Patient understood and was agreeable with the plan. All questions were answered. Lab Data Attestation: I reviewed the patient's lab results. Labs: Laboratory Results - last 24 hr 08/31/21 08/31/21 13:10 13:10 WBC 5.6 RBC 4.64 Hgb 15.0 Hct 45.7 MCV 98.5 MCH 32.3 H MCHC 32.8 RDW Std Deviation 56.2 H RDW Coeff of [place] 15.5 H Plt Count 103 L MPV 11.3 Immature Gran % (Auto) 0.400 Neut % (Auto) 59.1 Lymph % (Auto) 29.9 [place] % (Auto) 7.2 Eos % (Auto) 2.9 Baso % (Auto) 0.5 Absolute Neuts (auto) 3.3 Absolute Lymphs (auto) 1.67 Nucleated RBC % 0 Sodium 138 Potassium 3.5 Chloride 101 Carbon Dioxide 30.0 Anion Gap 7 BUN 10 Creatinine 0.94 Estim Creat Clear Calc 55.65 Est GFR (MDRD) Af Amer 78 Est GFR (MDRD) Non-Af 65 BUN/Creatinine Ratio 10.6 Glucose 152 H Calcium 8.5 Total Bilirubin 0.60 AST 47 H ALT 50 Alkaline Phosphatase 296 H Troponin I High Sens 6 Total Protein 7.1 Albumin 3.2 Globulin 3.9 Albumin/Globulin Ratio 0.8 L Radiography Diagnostic Testing: Clinical Impression(s) from Imaging Studies Chest CTA 08/31/21 13:22 IMPRESSION: No evidence of pulmonary embolism. Scattered focal areas of groundglass appearance in both lungs as described above. Early bilateral infiltrates should be ruled out. Stable low density nodule in the right breast as well as stable 4.5 cm x 3 cm fat-containing nodule with central calcification in the right adrenal gland. Electronically Signed: Luis Mittal MD at 14:44 EST , EKG Initial EKG: Attestation: I personally reviewed and interpreted this EKG as follows: Interpretation: Sinus Rhythm (89) and No Acute Injury Pattern Prior EKG tracings: available for review Prior: Unchanged (08/10/2019) Discharge Plan Triage Chief Complaint: Shortness of Breath Other Complaint: Chest Pain ED Provider: Solomon Hamilton Dx/Rx/DC Orders Clinical Impression: Pneumonia Instructions: ED Pneumonia (Adult) Prescriptions: New levofloxacin [levofloxacin] 500 MG tablet 500 mg PO DAILY Qty: 7 RF: 0 No Action cholecalciferol (vitamin D3) 2,000 unit tablet 2,000 unit PO DAILY RF: 0 aspirin [Adult Low Dose Aspirin] 81 mg tablet,delayed release (DR/EC) 162 mg PO DAILY RF: 0 amlodipine 5 mg tablet 5 mg PO DAILY Qty: 30 RF: 11 albuterol sulfate 2.5 mg /3 mL (0.083 %) solution for nebulization 2.5 mg INHALATION Q4H PRN (Reason: shortness of breath or wheezing) Qty: 75 RF: 12 Breztri Aerosphere 160-9-4.8 mcg/actuation HFA aerosol inhaler 2 inh inhalation BID RF: 0 (DME) [employer] Verio test strips Strip See Rx Instructions .ROUTE .MEDSUPPLY Qty: 100 RF: 12 venlafaxine [Effexor XR] 37.5 mg capsule,extended release 24hr 37.5 mg PO DAILY Qty: 30 RF: 1 hydroxyzine HCl 10 mg tablet 10 mg PO TID-QID PRN (Reason: anxiety) Qty: 60 RF: 6 albuterol sulfate [ProAir HFA] 90 mcg/actuation HFA aerosol inhaler 2 puff INHALATION Q4H Qty: 8.5 RF: 12 clonazepam 1 mg tablet 1 mg PO BID Qty: 60 RF: 5 gabapentin 300 mg capsule 900 mg PO BID Qty: 180 RF: 12 metformin 1,000 mg tablet 1,000 mg PO BID Qty: 60 RF: 12 omeprazole 20 mg capsule,delayed release(DR/EC) 20 mg PO DAILY Qty: 30 RF: 12 tramadol 50 mg tablet 50 mg PO BID PRN (Reason: L shoulder pain) Qty: 60 RF: 5 zolpidem 10 mg tablet 10 mg PO QHS PRN (Reason: insomnia) Qty: 30 RF: 5 oxybutynin chloride 10 mg tablet extended release 24hr 10 mg PO DAILY Qty: 30 RF: 6 levofloxacin 500 mg tablet 500 mg PO DAILY Qty: 14 RF: 0 atorvastatin 20 mg tablet 20 mg PO QHS Qty: 30 RF: 11 allopurinol 300 mg tablet 300 mg PO DAILY Qty: 30 RF: 12 furosemide 20 mg tablet 20 mg PO DAILY Qty: 90 RF: 0 potassium chloride 20 mEq tablet extended release 20 meq PO DAILY Qty: 90 RF: 0 mesalamine 500 mg capsule, extended release 500 mg PO BID Qty: 60 RF: 0 Primary Care Provider: Irma Felix NP Referrals: Irma Felix NP, [employer] [Primary Care Provider] - 5-7 Days Disposition Disposition: Home, Self Care
--- NOTE | 2021-08-31 13:22 | CT_ITS ---
STUDY: CTA CHEST REASON FOR EXAM: Female, 60 years old. Elevated D-dimer. Chest pain and shortness of breath. RADIATION DOSAGE (If Supplied By Facility): CTDIvol = ( 23.20 ) mGy, DLP = ( 536.10 ) mGycm TECHNIQUE: The examination was performed with the intravenous administration of IV 100mL [id number]. Post-processing of the angiographic images was performed, with multiplanar reformation and 3D reconstruction. Individualized dose optimization techniques were used for this CT. COMPARISON: Comparison is made with prior study dated 12/15/2020. FINDINGS: Stable 2.8 cm low density nodule in the right breast with rim-like peripheral calcification. Normal enhancement of the main pulmonary artery and right and left pulmonary arteries. Normal enhancement of the bilateral peripheral pulmonary arteries. There is no demonstrated pulmonary embolism. Normal thoracic aorta and visualized great vessels. There is no demonstrated aortic dissection. There are calcifications of the coronary arteries. There are visualized mediastinal lymph nodes, which are within normal size limits, and with normal morphology. Normal hilar regions. Normal visualized trachea and bronchi. Focal area of groundglass appearance is seen in the medial aspect of the right upper lobe adjacent to the azygos vein. Minimal ground glass appearance is seen in the peripheral aspect of the right upper lobe as well as in the superior segment of the right lower lobe. Minimal increased markings are also seen in the peripheral lateral aspect of the right middle lobe. Early infiltrates should be ruled out. Stable 1 cm noncalcified well-defined nodule in the anterior aspect of the left upper lobe. Normal pleura. Normal chest wall structures. There are degenerative changes of thoracic spine. Stable 4.5 cm x 3 cm fat-containing nodule with central calcification in the right adrenal gland. CT/CTA Chest W/WO Contrast IMPRESSION: No evidence of pulmonary embolism. Scattered focal areas of groundglass appearance in both lungs as described above. Early bilateral infiltrates should be ruled out. Stable low density nodule in the right breast as well as stable 4.5 cm x 3 cm fat-containing nodule with central calcification in the right adrenal gland. Electronically Signed: Luis Mittal MD at 14:44 EST ,
[2021-08-31] MEDS: Ipratropium/Albuterol Sulfate 3 ML AMPUL.NEB INHALATION (13:24)
--- NOTE | 2021-08-31 13:29 | EKG12_ITS ---
Test Reason : SOB Blood Pressure : / mmHG Vent. Rate : 089 BPM Atrial Rate : 089 BPM P-R Int : 154 ms QRS Dur : 092 ms QT Int : 388 ms P-R-T Axes : 060 037 049 degrees QTc Int : 472 ms Normal sinus rhythm Normal ECG Confirmed by NELI BADILLO, STIVEN ([id number]), supervising editor trailer GIULIA RAMOS ([id number]) on 09/04/2021 12:31:40 PM Referred By: KARY Confirmed By:STIVEN QUINTEROS MD
[2021-08-31 13:33] LABS: Absolute Lymphocyte Count 1.67 X10^3/uL (0.83-4.51); Absolute Neutrophil Count 3.3 X10^3/uL (2.0-7.7); Basophil# 0.03 X10^3/uL; Basophil% 0.5 % (0-1); Eosinophil# 0.16 X10^3/uL; Eosinophils% 2.9 % (0-5); Hematocrit 45.7 % (37-47); Lymphocyte # 1.67 X10^3/ul (0.83-4.51); Lymphocyte % 29.9 % (19-41); Mean Corp Hgb Conc 32.8 g/dL (32-36); Mean Corpuscular Hgb 32.3 pg (27.0-32.0); Mean Corpuscular Volume 98.5 fL (81-99); Mean Platelet Vol. 11.3 fl (6.2-12.0); Monocyte% 7.2 % (0-10); NRBC Flagged by Analyzer 0 % (0-5); Neutrophil % 59.1 % (47-70); Platelet Count 103 K/mm3 (150-450); RBC Distribution Width CV 15.5 % (11.6-14.6); RBC Distribution Width SD 56.2 fl (35.1-43.9); Red Blood Count 4.64 M/mm3 (4.2-5.4); White Blood Count 5.6 K/mm3 (4.4-11.0)
[2021-08-31 13:46] LABS: ALB/GLOB Ratio 0.8 RATIO (0.9-2.4); AST(SGOT) 47 U/L (15-37); Alanine Aminotransfer ALT/SGPT 50 U/L (13-56); Albumin, Serum 3.2 g/dL (3.2-5.0); Alkaline Phosphatase 296 U/L (45-117); Anion Gap 7 (5-15); BUN 10 mg/dL (7-18); BUN/Creat Ratio 10.6 RATIO (10-20); Calcium,Total 8.5 mg/dL (8.5-10.1); Chloride 101 mmol/L (98-107); Creatinine, Serum 0.94 mg/dL (0.55-1.02); EST Glomerular Filtration Rate 65 mL/min (>60); Est Glom Filt Rate - Afr Amer 78 mL/min (>60); Estimated Creatinine Clearance 55.65 ml/min; Globulin 3.9 g/dL (2.2-4.2); Glucose 152 mg/dL (74-106); Potassium 3.5 mmol/L (3.5-5.1); Protein, Total 7.1 g/dL (6.4-8.2); Sodium Level 138 mmol/L (136-145); Troponin-I HS 6 pg/mL (3.0-54.0)
[2021-08-31] MEDS: levoFLOXacin 750 MG Tablet PO (15:34)
== END 2021-08-31 15:32 | disposition home or self-care (01) ==
PROVIDERS: Emergency Provider Emergency Medicine; PCP Nurse Practitioner; Visit Provider Emergency Medicine
DX: J18.9 Pneumonia, unspecified organism (principal); E11.9 Type 2 diabetes mellitus without complications; E78.5 Hyperlipidemia, unspecified; I10 Essential (primary) hypertension; Z79.82 Long term (current) use of aspirin; Z79.52 Long term (current) use of systemic steroids; Z79.84 Long term (current) use of oral hypoglycemic drugs; Z79.899 Other long term (current) drug therapy; Z20.822 Contact with and (suspected) exposure to COVID-19; K21.9 Gastro-esophageal reflux disease without esophagitis; M10.9 Gout, unspecified; E03.9 Hypothyroidism, unspecified
CPT/HCPCS: 71275; 80053; 84484; 85025; 87426; 93005; 94640; 99284; Q9967; A4216

== ENCOUNTER → 2022-02-08 | Outpatient (CLI) | payer MEDICAID, SELFPAY ==
[2022-02-08 23:44] LABS: Absolute Lymphocyte Count 1.83 X10^3/uL (0.83-4.51); Absolute Neutrophil Count 3.9 X10^3/uL (2.0-7.7); Basophil# 0.03 X10^3/uL; Basophil% 0.5 % (0-1); Eosinophils% 3.1 % (0-5); Hematocrit 44.4 % (37-47); Hemoglobin 14.2 g/dL (12.0-15.0); Lymphocyte # 1.83 X10^3/ul (0.83-4.51); Lymphocyte % 28.7 % (19-41); Mean Corpuscular Hgb 32.3 pg (27.0-32.0); Mean Corpuscular Volume 101.1 fL (81-99); Mean Platelet Vol. 12.7 fl (6.2-12.0); Monocyte% 6.3 % (0-10); NRBC Flagged by Analyzer 0 % (0-5); Neutrophil # 3.89 X10^3/uL (2.7-7.7); Neutrophil % 61.1 % (47-70); POSITIVE COUNT YES; Platelet Count 89 K/mm3 (150-450); RBC Distribution Width CV 14.9 % (11.6-14.6); RBC Distribution Width SD 56.4 fl (35.1-43.9); Red Blood Count 4.39 M/mm3 (4.2-5.4); White Blood Count 6.4 K/mm3 (4.4-11.0)
[2022-02-08 23:46] LABS: Differential Indicated SCAN CRITERIA MET
[2022-02-08 23:55] LABS: AST(SGOT) 45 U/L (15-37); Alanine Aminotransfer ALT/SGPT 48 U/L (13-56); Albumin, Serum 3.5 g/dL (3.2-5.0); Alkaline Phosphatase 376 U/L (45-117); Anion Gap 2 (5-15); BUN 14 mg/dL (7-18); BUN/Creat Ratio 13.9 RATIO (10-20); Calcium,Total 9.2 mg/dL (8.5-10.1); Chloride 105 mmol/L (98-107); Creatinine, Serum 1.01 mg/dL (0.55-1.02); EST Glomerular Filtration Rate 59 mL/min (>60); Est Glom Filt Rate - Afr Amer 72 mL/min (>60); Globulin 3.6 g/dL (2.2-4.2); Glucose 127 mg/dL (74-106); Iron 89 ug/dL (50-170); Iron Binding Capacity,Total 384 ug/dL (250-450); Potassium 4.6 mmol/L (3.5-5.1); Protein, Total 7.1 g/dL (6.4-8.2); Sodium Level 142 mmol/L (136-145)
[2022-02-08 23:56] LABS: Vitamin B12 721 pg/mL (211-911)
[2022-02-09 00:01] LABS: D-Dimer Quantitative (DVT/PE) 0.72 FEU/ug/m (0.27-0.49)
[2022-02-09 00:26] LABS: Hemoglobin A1c 5.8 % (3.8-5.6)
[2022-02-09 00:30] LABS: Differential Comment SCANNED
[2022-02-10 08:23] LABS: Transferrin 311 mg/dL (192-364)
== END | disposition home or self-care (01) ==
PROVIDERS: PCP Nurse Practitioner; Visit Provider Nurse Practitioner
DX: E11.8 Type 2 diabetes mellitus with unspecified complications (principal); E11.65 Type 2 diabetes mellitus with hyperglycemia; D50.9 Iron deficiency anemia, unspecified; R23.3 Spontaneous ecchymoses
CPT/HCPCS: 80053; 82607; 83036; 83540; 83550; 84466; 85025; 85379

== ENCOUNTER 2022-02-11 17:17 | Emergency (ER) | payer MEDICAID, SELFPAY ==
[2022-02-11 17:18] VITALS: BP 131/100; PULSE 82; RESP 16; TEMP 36.1; O2SAT 97; BMI 42.9
--- NOTE | 2022-02-11 18:03 | EX.ED.DYSGE1 ---
HPI History of Present Illness Chief Complaint: Abn Labs Informant: patient Onset/Context/Timing Maximum Severity: Mild Narrative Narrative: -year-old female history of diabetes, COPD, anemia and liver cirrhosis. Is never had a DVT or PE. No recent travel, surgery or immobilization. She states she has been tired has not felt well for a week. Saw her nurse practitioner Phyllis Hedrick who did screening labs. She had elevated D-dimer and they wanted to come in the emergency department be evaluated. She has had this before. She has had ultrasound of her legs on both sides which were negative in the past. She had a CTA which was negative in the past. She has no shortness of breath. No chest pain. No hemoptysis. The left leg is chronically swollen and at times red. She said they do not have a specific cause for it. She has had no fever or chills. No hemoptysis. Prior similar symptoms: Yes Recent Illness/Hospitalization: No PFSH PFSH Medical History Abnormal endoscopy of upper gastrointestinal tract Adrenal tumor Anxiety Bilateral acute otitis media Bilateral otitis media Bladder spasms Bronchitis delivery delivered Colitis COPD (chronic obstructive pulmonary disease) COPD exacerbation Depression Diabetes mellitus type 2, uncontrolled, with complications Edema of left lower leg Essential hypertension Fatty liver disease, nonalcoholic GERD (gastroesophageal reflux disease) Gout Hyperglycemia Hyperlipidemia Hypothyroidism IBS (irritable bowel syndrome) Insomnia Left shoulder pain LLQ abdominal pain Maxillary sinusitis, acute Mixed obstructive and restrictive ventilatory defect Neurogenic pain of left foot Neuropathy, lower extremity Otitis media of left ear Ovarian tumor Pain of left leg Pain, joint, lower leg, left Panic attacks Pneumonia Renal insufficiency Stress incontinence Thrush of mouth and esophagus Tobacco abuse Weakness of both arms Weakness of both legs Yeast infection involving the vagina and surrounding area Home Medications cholecalciferol (vitamin D3) 50 mcg (2,000 unit) tablet 2,000 unit PO DAILY 08/18/19 [History Last Taken Unknown] albuterol sulfate 2.5 mg/3 mL (0.083 %) solution for nebulization 2.5 mg (3 mL) inhalation Q4H PRN shortness of breath or wheezing #75 mL 02/04/20 [Rx Last Taken Unknown] blood sugar diagnostic ([employer] Verio test strips) #100 ea 12/27/20 [Rx Last Taken Unknown] albuterol sulfate 90 mcg/actuation aerosol inhaler (ProAir HFA) 2 puff inhalation Q4H #8.5 grams 07/27/21 [Rx Last Taken Unknown] metformin 1,000 mg tablet 1,000 mg PO BID #60 tabs 07/27/21 [Rx Last Taken Unknown] omeprazole 20 mg capsule,delayed release 20 mg PO DAILY #30 caps 07/27/21 [Rx Last Taken Unknown] tiotropium bromide 2.5 mcg/actuation mist for inhalation (Spiriva Respimat) 2 puff inhalation QDAY #1 ea 09/06/21 [Rx Last Taken Unknown] allopurinol 300 mg tablet 300 mg PO DAILY #30 tabs 10/16/21 [Rx Last Taken Unknown] atorvastatin 20 mg tablet 20 mg PO QHS #30 tabs 10/16/21 [Rx Last Taken Unknown] budesonide 160 mcg-glycopyr 9 mcg-formot 4.8 mcg/actuation HFA inhaler (Breztri Aerosphere) 2 inh inhalation BID #10.7 grams 10/16/21 [Rx Last Taken Unknown] venlafaxine 75 mg capsule,extended release 24 hr 75 mg PO DAILY #30 caps 10/16/21 [Rx Last Taken Unknown] amlodipine 5 mg tablet 5 mg PO DAILY #90 tabs 12/26/21 [Rx Last Taken Unknown] clonazepam 1 mg tablet 1 mg PO BID #60 tabs 01/22/22 [Rx Last Taken Unknown] gabapentin 300 mg capsule 900 mg PO TID 30 days #270 caps 01/22/22 [Rx Last Taken Unknown] tramadol 50 mg tablet 50 mg PO BID PRN L shoulder pain #60 tabs 01/22/22 [Rx Last Taken Unknown] zolpidem 10 mg tablet 10 mg PO QHS PRN insomnia #30 tabs 01/22/22 [Rx Last Taken Unknown] cyanocobalamin (vitamin B-12) 1,000 mcg/mL injection solution 1,000 mcg IM ONCE #1 mL 02/08/22 [Clinic Last Taken Unknown] cephalexin 500 mg capsule 500 mg PO Q6 10 days #40 caps 02/11/22 [Rx Last Taken Unknown] Allergy/AdvReac Type Severity Reaction Status Date / Time amoxicillin [From Augmentin] Allergy Severe rash Verified 02/11/22 17:22 clavulanic acid Allergy Severe rash Verified 02/11/22 17:22 [From Augmentin] meperidine [From Demerol] Allergy Severe headache Verified 02/11/22 17:22 pioglitazone [From Actos] Allergy Severe CHF and Verified 02/11/22 17:22 edema renal insufficiency bupropion [From Wellbutrin] AdvReac Severe suicidal Verified 02/11/22 17:22 acetaminophen AdvReac Other Verified 02/11/22 17:22 NSAIDS (Non-Steroidal AdvReac Other Verified 02/11/22 17:22 Anti-Inflamma Family History Aunt Colon cancer Breast cancer Mother Breast cancer Father Heart disease Alzheimer disease Hypertension CVA (cerebral vascular accident) Surgical History Achilles rupture H/O laparoscopy H/O oophorectomy History of cholecystectomy History of cholecystectomy History of repair of rotator cuff History of tonsillectomy Open right hand fracture Previous section Social History Smoking Status: Current every day smoker tobacco type: cigarettes alcohol intake: never substance use type: does not use caffeine: Yes Type: carbonated beverages Number of servings: 3 and coffee Number of servings: 3 ROS ROS ED ROS Narrative Left lower leg swollen and red. Review of Systems ROS Unobtainable: Denies due to encephalopathy Constitutional Constitutional ED: Denies chills or fever(s) Eyes Eyes: Denies blurry vision ENT ENT ED: Denies ear pain Cardiovascular Cardiovascular: Denies chest pain Respiratory/Chest Respiratory/Chest: Denies cough or dyspnea Gastrointestinal Gastrointestinal: Denies abdominal pain, constipation, diarrhea, melena or nausea Genitourinary Genitourinary ED: Denies dysuria or hematuria Musculoskeletal Musculoskeletal: Denies arthralgias Integumentary Denies abscess Neurologic Neurologic: Denies headache(s) Psychiatric Psychiatric: Denies anxiety Endocrine Endocrinology: Denies cold intolerance Hematologic/Lymphatic Hematologic/Lymphatic: Reports none Allergic/Immunologic Allergic/Immunologic ED: Denies mouth swelling or tongue swelling EXAM Physical Exam Narrative Exam Narrative: Well-appearing 61-year-old no acute distress. Vital signs stable afebrile. Pulse ox 97% on room air no signs hypoxia. H EENT exam unremarkable neck nontender. Lungs clear to auscultation bilaterally. Heart regular rhythm no murmur. Rate about 80. Abdomen soft nontender. Moving all 4 extremities. Both upper and right lower extremity unremarkable left lower extremity is swollen its red consistent with cellulitis between the ankle and knee. There is no cords. Normal dorsi plantarflexion intact. The lower leg is either cellulitis, possible DVT but think unlikely because of negative ultrasounds in the past versus venous stasis which is very possible. Const Vital Signs: 02/11/22 17:18 02/11/22 17:35 Temperature 96.9 F L Temperature Source Temporal Pulse Rate 82 Respiratory Rate 16 Respiratory Effort Normal Non-Labored Respiratory Pattern Normal Blood Pressure 131/100 H Blood Pressure Mean 110 Pulse Ox 97 Oxygen Delivery Method Room Air Positive well nourished, well developed and obese; Negative for cachectic, contractures or unkempt General Appearance ED: well developed; Negative for unkempt, cachectic or contractures Nutritional Appearance: obese; Negative for cachectic HEENT Reports moist mucous membranes; Denies TM's clear Negative for trauma Tympanic Membrane ED: Negative for TM's clear Eyes PERRL and EOMs intact bilaterally General Eye ED: Negative for pale conjunctiva or scleral icterus Neck no lymphadenopathy, supple and no JVD General: Negative for tenderness Lymph Lymphatic: Negative for other Chest Wall inspection of chest normal and palpation of chest normal Resp normal respiratory effort and clear to auscultation bilaterally Effort and Inspection: Negative for retractions Auscultation: Negative for rales, rhonchi or wheezes Cardio regular rate, regular rhythm, S1 normal heart sound, S2 normal heart sound and no murmurs GI normal to inspection, nondistended, normoactive bowel sounds, non-tender, non-distended and no masses Auscultation: normoactive bowel sounds Palpation: soft; Negative for tender, guarding or mass Back/Spine no CVA tenderness Extremity normal to inspection Extremity Narrative: Except left lower leg swollen. Tender. Red consistent with cellulitis versus venous stasis. Unlikely but possible DVT. Neuro oriented x3 Sensorium / Orientation: alert Motor Exam: strength 5/5 throughout Psych mental status grossly normal Appearance: Negative for unkempt Attitude: No agitated Mood & Affect: Negative for depressed or anxious Skin no wounds Rashes: rashes noted MDM MDM MDM Narrative Medical decision making narrative: Patient sent in for evaluation due to an elevated D-dimer. She has no chest pain and no shortness of breath. Her other outpatient labs her CBC and chemistry were unremarkable. She was started on Keflex for possible cellulitis. I will order an outpatient ultrasound for tomorrow of the left lower leg to rule out DVT. If this is negative which I expect will be she will need further evaluation of this for possible venous stasis. Discharge Plan Triage Chief Complaint: Abn Labs ED Provider: Juancarlos Sanz Dx/Rx/DC Orders Clinical Impression: Cellulitis, History of diabetes mellitus, History of COPD Instructions: ED Cellulitis Prescriptions: New cephalexin 500 mg capsule 500 mg PO Q6 10 Days Qty: 40 0RF No Action cholecalciferol (vitamin D3) 2,000 unit tablet 2,000 unit PO DAILY albuterol sulfate 2.5 mg /3 mL (0.083 %) solution for nebulization 2.5 mg INHALATION Q4H PRN (Reason: shortness of breath or wheezing) Qty: 75 12RF (DME) [employer] Verio test strips Strip See Rx Instructions .ROUTE .MEDSUPPLY Qty: 100 12RF Rx Instructions: DIRECTED 3-4 X A DAY albuterol sulfate [ProAir HFA] 90 mcg/actuation HFA aerosol inhaler 2 puff INHALATION Q4H Qty: 8.5 12RF metformin 1,000 mg tablet 1,000 mg PO BID Qty: 60 12RF omeprazole 20 mg capsule,delayed release(DR/EC) 20 mg PO DAILY Qty: 30 12RF Breztri Aerosphere 160-9-4.8 mcg/actuation HFA aerosol inhaler 2 inh inhalation BID Qty: 10.7 12RF allopurinol 300 mg tablet 300 mg PO DAILY Qty: 30 12RF atorvastatin 20 mg tablet 20 mg PO QHS Qty: 30 12RF venlafaxine 75 mg capsule,extended release 24hr 75 mg PO DAILY Qty: 30 12RF zolpidem 10 mg tablet 10 mg PO QHS PRN (Reason: insomnia) Qty: 30 5RF tramadol 50 mg tablet 50 mg PO BID PRN (Reason: L shoulder pain) Qty: 60 5RF clonazepam 1 mg tablet 1 mg PO BID Qty: 60 5RF gabapentin 300 mg capsule 900 mg PO TID 30 Days Qty: 270 8RF cyanocobalamin (vitamin B-12) 1,000 mcg/mL solution 1,000 mcg IM ONCE Qty: 1 0RF Spiriva Respimat 2.5 mcg/actuation mist 2 puff inhalation QDAY Qty: 1 6RF Rx Instructions: administer at approximately the same time(s) each day amlodipine 5 mg tablet 5 mg PO DAILY Qty: 90 3RF Other Ambulatory Orders: Venous Duplex US, Unilateral (Routine) Facility: [facility] - Location: [facility] Ordered By: Dr. Juancarlos Sanz Primary Care Provider: Irma Felix NP Referrals: Irma Felix NP, [employer] [Primary Care Provider] - As soon as possible Activity Restrictions/Additional Instructions: Clinically the swelling in the left lower leg and the redness looks like cellulitis. We will start her on antibiotic Keflex 4 times a day for 10 days. If this does not make it better you need further evaluation the leg. I will order an ultrasound for tomorrow they will call you in the morning you will need to return tomorrow and had an ultrasound done of your left leg. If there is no clot and has not improved with the antibiotics you will need further evaluation for possible venous stasis of your left leg. Follow-up with your nurse practitioner if the leg does not improve and is not a clot and has not improved but antibiotics I can refer you to a vascular surgeon for further evaluation. Disposition Disposition: Home, Self Care
[2022-02-11] MEDS: Cephalexin 250 MG Capsule 500 MG PO (18:24)
== END 2022-02-11 18:29 | disposition home or self-care (01) ==
PROVIDERS: Emergency Provider Emergency Medicine; PCP Nurse Practitioner; Visit Provider Emergency Medicine
DX: J44.9 Chronic obstructive pulmonary disease, unspecified (principal); E11.40 Type 2 diabetes mellitus with diabetic neuropathy, unspecified; E11.69 Type 2 diabetes mellitus with other specified complication; E11.65 Type 2 diabetes mellitus with hyperglycemia; E78.5 Hyperlipidemia, unspecified; I10 Essential (primary) hypertension; F17.210 Nicotine dependence, cigarettes, uncomplicated; Z79.899 Other long term (current) drug therapy; Z79.84 Long term (current) use of oral hypoglycemic drugs
CPT/HCPCS: 99284

== ENCOUNTER → 2022-02-12 | Outpatient (CLI) | payer MEDICAID, SELFPAY ==
--- NOTE | 2022-02-12 11:36 | VDLE_ITS ---
Reason For Study: Swelling Procedure LEFT This is a venous duplex using B-mode, color GSV is normal. flow and spectral Doppler. CFV is compressible, spontaneous, phasic, Exam performed in department. competent, and demonstrates normal A preliminary report was called and/or faxed augmentation. to PCP: Isidro. Patient seen in ED FV is compressible, spontaneous, phasic, 02/11/2022. competent and demonstrates normal augmentation. POP V is compressible, spontaneous, phasic, competent and demonstrates normal augmentation. T/P Trunk is compressible. PTV is compressible. LT PerV is compressible. VL/Venous Duplex US, Unilateral Interpretation Summary Deep veins of the left lower extremity are patent and compressible segmentally. There is no evidence of left lower extremity deep vein thrombosis. Valvular competence appears intac t within the proximal deep venous system on the left . The left great saphenous vein appears patent a nd compressible segmentally. Ordering Physician: Juancarlos Sanz Referring Physician: Irma Felix Performed By: Lexy Russo RVT
== END | disposition home or self-care (01) ==
LOC: CVS 11:35
PROVIDERS: PCP Nurse Practitioner; Referring Provider Emergency Medicine; Visit Provider Emergency Medicine
DX: M79.89 Other specified soft tissue disorders (principal); R79.89 Other specified abnormal findings of blood chemistry
CPT/HCPCS: 93971

== ENCOUNTER → 2023-01-17 | Outpatient (CLI) | payer MEDICAID, SELFPAY ==
[2023-01-17 20:30] LABS: Absolute Neutrophil Count 3.4 X10^3/uL (2.0-7.7); Basophil# 0.03 X10^3/uL; Basophil% 0.6 % (0-1); Eosinophil# 0.14 X10^3/uL; Eosinophils% 2.8 % (0-5); Hematocrit 44.5 % (37-47); Hemoglobin 14.6 g/dL (12.0-15.0); Mean Corp Hgb Conc 32.8 g/dL (32-36); Mean Corpuscular Hgb 31.9 pg (27.0-32.0); Mean Corpuscular Volume 97.4 fL (81-99); Mean Platelet Vol. 12.6 fl (6.2-12.0); Monocyte# 0.27 X10^3/uL; Monocyte% 5.4 % (0-10); NRBC Flagged by Analyzer 0 % (0-5); Neutrophil # 3.36 X10^3/uL (2.7-7.7); Neutrophil % 67.2 % (47-70); POSITIVE COUNT YES; Platelet Count 69 K/mm3 (150-450); RBC Distribution Width CV 14.9 % (11.6-14.6); RBC Distribution Width SD 53.1 fl (35.1-43.9); Red Blood Count 4.57 M/mm3 (4.2-5.4)
[2023-01-17 20:47] LABS: ALB/GLOB Ratio 0.9 RATIO (0.9-2.4); AST(SGOT) 40 U/L (15-37); Alanine Aminotransfer ALT/SGPT 59 U/L (13-56); Albumin, Serum 3.5 g/dL (3.2-5.0); Alkaline Phosphatase 416 U/L (45-117); Anion Gap 3 (5-15); BUN 11 mg/dL (7-18); BUN/Creat Ratio 12.8 RATIO (10-20); Calcium,Total 9.1 mg/dL (8.5-10.1); Chloride 104 mmol/L (98-107); Cholesterol 110 mg/dL (200); Creatinine, Serum 0.86 mg/dL (0.55-1.02); EST Glomerular Filtration Rate 72 mL/min (>60); Est Glom Filt Rate - Afr Amer 87 mL/min (>60); Globulin 3.8 g/dL (2.2-4.2); Glucose 107 mg/dL (74-106); High Density Lipoprotein 38 mg/dL; Potassium 4.5 mmol/L (3.5-5.1); Protein, Total 7.3 g/dL (6.4-8.2); Sodium Level 139 mmol/L (136-145); Triglycerides 119 mg/dL; Uric Acid 5.5 mg/dL (2.6-6.0); Very Low Density Lipoprotein 24 mg/dL (5-40)
[2023-01-17 20:58] LABS: Differential Indicated SCAN CRITERIA MET
[2023-01-17 20:59] LABS: Platelet Estimate MOD DEC (ADEQ)
[2023-01-17 21:00] LABS: Anisocytosis RARE; Macrocytosis RARE; Red Cell Morphology N CHROM NORMAL (NORM C&C)
[2023-01-17 21:14] LABS: Hemoglobin A1c 5.3 % (3.8-5.6)
== END | disposition home or self-care (01) ==
PROVIDERS: PCP Nurse Practitioner; Visit Provider Nurse Practitioner
DX: K21.9 Gastro-esophageal reflux disease without esophagitis (principal); F32.A Depression, unspecified; D50.9 Iron deficiency anemia, unspecified; F41.9 Anxiety disorder, unspecified; I10 Essential (primary) hypertension; E78.5 Hyperlipidemia, unspecified
CPT/HCPCS: 80053; 80061; 83036; 84550; 85025